=== PATIENT | male | born 1950 | race Caucasian/White ===

== ENCOUNTER → 2016-11-05 | Day surgery (SDC) | payer MEDICARE, BC, OTHER ==
[~2016-11-05] VITALS: Ht 175.3 cm; Wt 81.6 kg
[~2016-11-05] MED LIST: ASPI325T PO; BUPIVACAINE LIPOSOME/PF 1.3% 20 ML VIAL (13.3MG/ML)(EXPAREL) As Ordered ONE; BUPIVACAINE LIPOSOME/PF 1.3% 20 ML VIAL (13.3MG/ML)(EXPAREL) XX ONE; BUPIVACAINE/EPIN 0.25% 30 ML VIAL As Ordered ONE; BUPIVACAINE/EPIN 0.25% 30 ML VIAL XX ONE; FLUT1POW2; GLYCOPYRROLATE INJ 0.2 MG/ML 2 ML VIAL As Ordered ONE; HYDROmorphone HCL 2 MG/ML 1ML VIAL (J1170) As Ordered ONE; KETOROLAC 30 MG/ML VIAL (J1885) IV SCH; KETOROLAC 60 MG/2 ML VIAL (J1885) As Ordered ONE; LAMI1TAB8 PO; LIDOCAINE 2% INJ 100 MG/5 ML SDV (FOR ANES.) As Ordered ONE; LR 1,000 ML IV SCH; MIDAZOLAM INJ 2 MG/2 ML VIAL (J2250) As Ordered ONE; MORPHINE 2 MG/ML 1ML SYRINGE IV PRN; NEOSTIGMINE 1MG/ML 5 ML SYRINGE (J2710) As Ordered ONE; ONDANSETRON 4MG/2ML VIAL (J2405) IV PRN; PERCOCET 5MG/325MG TAB As Ordered ONE; PERCOCET 5MG/325MG TAB PO PRN; PROPOFOL 200 MG/20 ML VIAL As Ordered ONE; ROCURONIUM BROMIDE 50 MG/5 ML VIAL As Ordered ONE; SIMV20TA2 PO; VITA200016 PO; VITA50LO2 PO; VITATAB11 PO; ceFAZolin SOD 1 GM in D5W MINI-BAG PLUS 50 ML IV ONE; dexameTHASONE 4 MG/ML 1ML VIAL (J1100) As Ordered ONE; ePHEDrine SULFATE 25 MG/5 ML(5MG/ML) SYRINGE As Ordered ONE; fentaNYL 100 MCG/2 ML INJECTION (J3010) IV PRN; fentaNYL 250 MCG/5 ML INJECTION (J3010) As Ordered ONE
[2016-11-05 11:40] VITALS: BP 124/78
--- NOTE | 2016-11-05 14:51 | RO ---
DATE OF PROCEDURE: 11/05/2016 PREPROCEDURE DIAGNOSIS: Recurrent right inguinal hernia. POSTPROCEDURE DIAGNOSIS: Recurrent right inguinal hernia. PROCEDURE: Right inguinal hernia repair with mesh. SURGEON: Orlando Martinez MD POURER: Dr. Ashley (provided exposure, retraction, and placement of the mesh). ESTIMATED BLOOD LOSS: Minimal. FLUIDS: Crystalloid. ANESTHESIA: General endotracheal anesthesia. DISPOSITION: The patient was taken to the recovery room awake, alert, hemodynamically stable. DESCRIPTION OF PROCEDURE: The patient was brought to the operating room and was given general anesthesia. After adequate anesthesia and preoperative antibiotics were given, the patient was prepped and draped in the usual sterile fashion. Next, a right inguinal incision was made with skin knife. Electrocautery was used to cut through dermis and underlying subcutaneous tissue down to the external oblique muscle fibers, which were opened along its length and down through the external ring, taking care to keep the external oblique muscles off the underlying soft tissues. A was used to provide retraction in this area and then the cord structures were mobilized off the posterior transverse fascia as well as floor of the canal as well as the pubis. The inguinal ligament was cleared of some attachments as well. These were taken down with electrocautery. The hernia sac was then visualized and was mobilized off surrounding structures and imbricated. I returned to the peritoneal cavity. A PerFix plug was then placed in the canal and sutured superiorly, medially and partially laterally to the external oblique/internal oblique area. The UltraPro mesh was sutured over the top of this in the floor of the canal using #2-0 PDS starting at pubis interruptedly along the inguinal ligament and Secure Strap medially. The tails of mesh were brought together with #2-0 PDS. However, what was noticed at this time was the ilioinguinal nerve, which had been kept free during the dissection, was separate from the cord structures midway down and dove medially along the internal oblique and this was able to be freed up by opening up the external oblique and there was no tension on the nerve itself, but it was lying right on top of the mesh and my concern was that without anything underlying this there be a higher chance for scarring of this nerve. Thus I mobilized it more proximally and transected it proximally. Next, the external oblique was closed over the mesh and the cord contents with #2-0 PDS and #2-0 Vicryl was used to approximate Tori's, #3-0 Vicryl was used to approximate deep dermis and #4-0 Vicryl was used to approximate the skin. Steri-Strips and dry sterile dressing was applied. The patient was awakened, extubated, brought to the recovery room awake, alert, hemodynamically stable. Sponge and needle counts correct times two.
== END | disposition home or self-care (01) ==
LOC: M SDC 06:10
PROVIDERS: ATTEND Surgery
DX: K40.91 Unilateral inguinal hernia, without obstruction or gangrene, recurrent (principal); E78.5 Hyperlipidemia, unspecified; G47.30 Sleep apnea, unspecified; Z79.82 Long term (current) use of aspirin; M54.5 Low back pain
CPT/HCPCS: 49520; C1781; J0690; J1100; J1170; J1885; J2250; J2710; J3010

== ENCOUNTER → 2016-12-17 | Outpatient (REF) | payer MEDICARE, OTHER ==
[~2016-12-17] MED LIST changes: -BUPIVACAINE LIPOSOME/PF 1.3% 20 ML VIAL (13.3MG/ML)(EXPAREL) As Ordered ONE; -BUPIVACAINE LIPOSOME/PF 1.3% 20 ML VIAL (13.3MG/ML)(EXPAREL) XX ONE; -BUPIVACAINE/EPIN 0.25% 30 ML VIAL As Ordered ONE; -BUPIVACAINE/EPIN 0.25% 30 ML VIAL XX ONE; -GLYCOPYRROLATE INJ 0.2 MG/ML 2 ML VIAL As Ordered ONE; -HYDROmorphone HCL 2 MG/ML 1ML VIAL (J1170) As Ordered ONE; -KETOROLAC 30 MG/ML VIAL (J1885) IV SCH; -KETOROLAC 60 MG/2 ML VIAL (J1885) As Ordered ONE; -LIDOCAINE 2% INJ 100 MG/5 ML SDV (FOR ANES.) As Ordered ONE; -LR 1,000 ML IV SCH; -MIDAZOLAM INJ 2 MG/2 ML VIAL (J2250) As Ordered ONE; -MORPHINE 2 MG/ML 1ML SYRINGE IV PRN; -NEOSTIGMINE 1MG/ML 5 ML SYRINGE (J2710) As Ordered ONE; -ONDANSETRON 4MG/2ML VIAL (J2405) IV PRN; -PERCOCET 5MG/325MG TAB As Ordered ONE; -PERCOCET 5MG/325MG TAB PO PRN; -PROPOFOL 200 MG/20 ML VIAL As Ordered ONE; -ROCURONIUM BROMIDE 50 MG/5 ML VIAL As Ordered ONE; -ceFAZolin SOD 1 GM in D5W MINI-BAG PLUS 50 ML IV ONE; -dexameTHASONE 4 MG/ML 1ML VIAL (J1100) As Ordered ONE; -ePHEDrine SULFATE 25 MG/5 ML(5MG/ML) SYRINGE As Ordered ONE; -fentaNYL 100 MCG/2 ML INJECTION (J3010) IV PRN; -fentaNYL 250 MCG/5 ML INJECTION (J3010) As Ordered ONE
[2016-12-17 19:04] LABS: BASO % 0.6 % (0.0-1.0); EOS # 0.2 K/mm3 (0.0-0.50); EOS % 2.5 % (0.0-3.0); LARGE UNSTAINED CELL # 0.1 K/mm3 (0.0-0.4); LARGE UNSTAINED CELL % 1.2 % (0.0-4.0); LYMPH # 1.4 K/mm3 (1.5-4.5); LYMPH % 20.3 % (24.0-44.0); MEAN CORPUSCULAR HEMOGLOBIN 31.9 pg (27.0-33.0); MEAN CORPUSCULAR HGB CONC 33.1 g/dl (32.0-36.5); MEAN CORPUSCULAR VOLUME 96.3 fl (80.0-96.0); MONO # 0.4 K/mm3 (0.0-0.8); MONO % 5.6 % (0.0-5.0); NEUTROPHILS # 4.6 K/mm3 (1.8-7.7); NEUTROPHILS % 69.8 % (36.0-66.0); PLATELET COUNT, AUTOMATED 219 k/mm3 (150-450); WHITE BLOOD COUNT 6.6 K/mm3 (4.0-10.0)
[2016-12-17 19:12] LABS: ALBUMIN 4.1 GM/DL (3.2-5.2); ALBUMIN/GLOBULIN RATIO 1.71 (1.00-1.93); ALKALINE PHOSPHATASE 58 U/L (45-117); ALT/SGPT 28 U/L (12-78); ANION GAP 7 MEQ/L (8-16); AST/SGOT 15 U/L (15-37); BILIRUBIN,TOTAL 0.6 MG/DL (0.2-1.0); BLOOD UREA NITROGEN 21 MG/DL (7-18); CALCIUM LEVEL 9.1 MG/DL (8.8-10.2); CARBON DIOXIDE LEVEL 26 MEQ/L (21-32); CHLORIDE LEVEL 107 MEQ/L (98-107); CHOLESTEROL LEVEL 186 MG/DL (<200); CREATININE FOR GFR 1.17 MG/DL (0.70-1.30); GLOMERULAR FILTRATION RATE > 60.0 (>49); GLUCOSE, FASTING 106 MG/DL (80-110); POTASSIUM SERUM 4.4 MEQ/L (3.5-5.1); SODIUM LEVEL 140 MEQ/L (136-145); TOTAL PROTEIN 6.5 GM/DL (6.4-8.2); TRIGLYCERIDES LEVEL 52 MG/DL (<150)
== END ==
LOC: M LABNEURO 17:46
PROVIDERS: ATTEND Psychiatry & Neurology Neurology
DX: G45.9 Transient cerebral ischemic attack, unspecified (principal)

== ENCOUNTER 2018-07-06 07:38 | Outpatient (RCR) | payer MEDICARE, BC, OTHER | END 2018-07-21 09:35 | disposition home or self-care (01) | LOC: M PT 07:38 | DX: Z47.89 Encounter for other orthopedic aftercare (principal); M54.5 Low back pain | CPT/HCPCS: 97110 ==

== ENCOUNTER 2018-07-21 09:27 | Outpatient (RCR) | payer MEDICARE, BC, OTHER | END 2018-08-14 | LOC: M PT 09:27 | DX: M41.9 Scoliosis, unspecified (principal) | CPT/HCPCS: 97110 ==

== ENCOUNTER → 2018-09-16 | Outpatient (CLI) | payer MEDICARE, BC, OTHER ==
[~2018-09-16] MED LIST changes: +ASPI1TAB PO; +BACT800T5 PO; +OXAY1TAB PO; +TYLE500T78 PO
--- NOTE | 2018-09-16 11:25 | REP ---
Chest two views HISTORY: Preop Comparison: 04/07/2007 The lungs are clear. The heart is normal in size. The pulmonary vasculature is normal in appearance. The bony structure is intact. IMPRESSION: No acute disease. Electronically Signed by Austin Luis MD 09/16/2018 11:17 A
[2018-09-16 13:29] LABS: HEMATOCRIT 45.3 % (42.0-52.0); HEMOGLOBIN 15.2 g/dl (13.5-17.5); MEAN CORPUSCULAR HEMOGLOBIN 32.1 pg (27.0-33.0); MEAN CORPUSCULAR HGB CONC 33.6 g/dl (32.0-36.5); MEAN CORPUSCULAR VOLUME 95.8 fl (80.0-96.0); PLATELET COUNT, AUTOMATED 236 10^3/uL (150-450); RED BLOOD COUNT 4.73 10^6/uL (4.30-6.10); WHITE BLOOD COUNT 8.4 10^3/uL (4.0-10.0)
[2018-09-16 13:48] LABS: INR 1.09; PROTHROMBIN TIME 14.2 SECONDS (12.1-14.4)
[2018-09-16 13:49] LABS: PARTIAL THROMBOPLASTIN TIME 28.2 SECONDS (25.4-37.6)
[2018-09-16 14:01] LABS: BLOOD UREA NITROGEN 21 MG/DL (7-18); CALCIUM LEVEL 9.2 MG/DL (8.8-10.2); CARBON DIOXIDE LEVEL 25 MEQ/L (21-32); CHLORIDE LEVEL 104 MEQ/L (98-107); CREATININE FOR GFR 1.13 MG/DL (0.70-1.30); GLOMERULAR FILTRATION RATE > 60.0 (>49); GLUCOSE, FASTING 104 MG/DL (70-100); POTASSIUM SERUM 4.5 MEQ/L (3.5-5.1); SODIUM LEVEL 139 MEQ/L (136-145)
== END ==
LOC: M SMT 10:32
PROVIDERS: ATTEND Nurse Practitioner Family
DX: Z01.818 Encounter for other preprocedural examination (principal); N47.1 Phimosis

== ENCOUNTER 2018-09-28 11:22 | Day surgery (SDC) | payer MEDICARE, BC, OTHER ==
[~2018-09-28] VITALS: Ht 172.7 cm; Wt 81.6 kg
[~2018-09-28 11:22] MED LIST changes: -BACT800T5 PO; +LR 1,000 ML IV ONE; -OXAY1TAB PO; -TYLE500T78 PO
[2018-09-28] MEDS ORDERED: MIDAZOLAM INJ 2 MG/2 ML VIAL (J2250) As Ordered ONE (13:09)
[2018-09-28] MEDS ORDERED: LIDOCAINE 2% INJ 100 MG/5 ML SDV (FOR ANES.) As Ordered ONE (13:09)
[2018-09-28] MEDS ORDERED: ONDANSETRON 4MG/2ML VIAL (J2405) As Ordered ONE (13:09)
[2018-09-28] MEDS ORDERED: PROPOFOL 200 MG/20 ML VIAL As Ordered ONE (13:09)
[2018-09-28] MEDS ORDERED: METOCLOPRAMIDE INJ 10MG/2ML VIAL (J2765) As Ordered ONE (13:09)
[2018-09-28] MEDS ORDERED: fentaNYL 100 MCG/2 ML INJECTION (J3010) As Ordered ONE ×2 (13:09→15:06)
[2018-09-28] MEDS ORDERED: BACITRACIN OINT 30GM As Ordered ONE (13:37)
[2018-09-28] MEDS ORDERED: PERCOCET 5MG/325MG TAB As Ordered ONE (15:06)
--- NOTE | 2018-09-28 15:06 | ROOPDOC ---
[facility] Report Of Operation Report of Operation DATE OF PROCEDURE: 09/28/18 PREPROCEDURE DIAGNOSES: acquired phimosis. POSTPROCEDURE DIAGNOSES: same. PROCEDURE: circumcision. frenulectomy SURGEON: Aissatou Trevizo MD [facility] ANESTHESIA: GET (Dr. Chase). ESTIMATED BLOOD LOSS: Approximately <10 mL. COMPLICATIONS: none REMARKS: Uncircumcised; acquired phimosis. DESCRIPTION OF PROCEDURE: After examination and informed consent with the patient, the patient was taken to the operating room and a routine time out was completed. The patient then was prepped and draped with Betadine scrub and paint. Then, internal foreskin and external foreskin was marked circumferentially and the sleeve of tissue excised. Using 3-0 chromic coated with bacitracin the patient had interrupted approximation of internal and external foreskin circumferentially until all t issue was approximated. The frenulum was also incised and then approximated with 3-0 chromic coated with bacitracin in a running locking fashion. The patient's skin was cleaned with hydrogen peroxide and Dermabond (r) was placed on the sutured skin for protection and coverage The patient tolerated the procedure well and taken to the recovery room in excellent condition Aissatou Trevizo MD [facility] Aissatou Trevizo MD Sep 28, 2018 15:06
[2018-09-28] MEDS: PERCOCET 5MG/325MG TAB PO PRN ×2 (15:10→15:40)
[2018-09-28] MEDS: fentaNYL 100 MCG/2 ML INJECTION (J3010) IV PRN ×4 (15:10→15:25)
[2018-09-28] MEDS ORDERED: OXAY1TAB PO (15:12)
[2018-09-28] MEDS ORDERED: BACT800T5 PO (15:12)
[2018-09-28] MEDS ORDERED: TYLE500T78 PO (15:12)
[2018-09-28] MEDS ORDERED: LR 1,000 ML IV SCH (15:15)
[2018-09-28] MEDS ORDERED: ONDANSETRON 4MG/2ML VIAL (J2405) IV PRN (15:15)
[2018-09-28 16:28] VITALS: BP 148/90
== END 2018-09-28 16:29 | disposition home or self-care (01) ==
LOC: M SDC 11:22
PROVIDERS: ATTEND Urology Pediatric Urology
DX: N47.1 Phimosis (principal); E78.00 Pure hypercholesterolemia, unspecified; R23.3 Spontaneous ecchymoses; M12.9 Arthropathy, unspecified; M54.5 Low back pain; R56.9 Unspecified convulsions; R06.83 Snoring; G47.30 Sleep apnea, unspecified; Z79.899 Other long term (current) drug therapy; Z86.73 Personal history of transient ischemic attack (TIA), and cerebral infarction without residual deficits

== ENCOUNTER → 2019-01-29 | Outpatient (CLI) | payer MEDICARE, BC, OTHER ==
[~2019-01-29] MED LIST changes: +ASPI-1 PO; -ASPI1TAB PO; -ASPI325T PO; +ASPI81TA26 PO; +BACT800T5 PO; +D 101000 PO; -LR 1,000 ML IV ONE; +OXAY1TAB PO; +TYLE500T78 PO
[2019-01-29 12:18] LABS: HEMATOCRIT 42.8 % (42.0-52.0); HEMOGLOBIN 14.5 g/dl (13.5-17.5); MEAN CORPUSCULAR HGB CONC 33.9 g/dl (32.0-36.5); MEAN CORPUSCULAR VOLUME 97.5 fl (80.0-96.0); PLATELET COUNT, AUTOMATED 213 10^3/uL (150-450); RED BLOOD COUNT 4.39 10^6/uL (4.30-6.10); WHITE BLOOD COUNT 5.6 10^3/uL (4.0-10.0)
[2019-01-29 13:00] LABS: ALBUMIN 3.7 GM/DL (3.2-5.2); ALT/SGPT 25 U/L (12-78); BILIRUBIN,TOTAL 0.7 MG/DL (0.2-1.0); BLOOD UREA NITROGEN 26 MG/DL (7-18); CALCIUM LEVEL 8.9 MG/DL (8.8-10.2); CARBON DIOXIDE LEVEL 25 MEQ/L (21-32); CHLORIDE LEVEL 110 MEQ/L (98-107); CREATININE FOR GFR 1.14 MG/DL (0.70-1.30); GLOMERULAR FILTRATION RATE > 60.0 (>49); GLUCOSE, FASTING 101 MG/DL (70-100); POTASSIUM SERUM 4.3 MEQ/L (3.5-5.1); SODIUM LEVEL 142 MEQ/L (136-145); TOTAL PROTEIN 6.5 GM/DL (6.4-8.2)
[2019-01-29 13:17] LABS: ERYTHROCYTE SEDIMENTATION RATE 3 mm/hr (0-20)
[2019-01-29 13:46] LABS: INR 1.1; PROTHROMBIN TIME 14.3 SECONDS (12.1-14.4)
--- NOTE | 2019-01-29 18:50 | ECGEPIP ---
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
--- NOTE | 2019-01-30 07:06 | REP ---
TWO VIEW CHEST: HISTORY: Knee pain. COMPARISON: Multiple, the latest 09/16/2018. There is a focal lumbar scoliotic curve, status quo. The cardiomediastinal silhouette is unchanged. The heart is not enlarged. Lung mueller are clear and stable. No acute patchy parenchymal opacities or pleural effusions have developed. IMPRESSION: No evidence of acute cardiopulmonary disease or significant change from 09/16/2018. Electronically Signed by Brendan Bryan DO 01/30/2019 08:26 A
== END ==
LOC: M LAB 11:21
PROVIDERS: ATTEND Orthopaedic Surgery
DX: M17.11 Unilateral primary osteoarthritis, right knee (principal)

== ENCOUNTER → 2019-02-05 | Outpatient (CLI) | payer MEDICARE, BC, OTHER | LOC: M PT 07:43 | PROVIDERS: ATTEND Orthopaedic Surgery | DX: Z01.818 Encounter for other preprocedural examination (principal); M17.11 Unilateral primary osteoarthritis, right knee ==

== ENCOUNTER 2019-02-23 05:48 | Inpatient (IN) | payer MEDICARE, BC, OTHER ==
--- NOTE | 2019-02-18 11:07 | HPE ---
DATE OF ADMISSION: 02/23/2019 ATTENDING PHYSICIAN: Dr. White CHIEF COMPLAINT: Right knee pain and stiffness. HISTORY: The patient is a 68-year-old male with progressively worsening right knee pain and stiffness. He has failed to improve with conservative measures. He continues to have symptoms with weightbearing activities and activities of daily living. The patient has consented for an elective right total knee arthroplasty with Dr. White for his continued symptoms. CURRENT MEDICATIONS: - Flonase 50 mcg daily - Zocor 20 mg daily - valacyclovir 1 gram as needed - Viagra 100 mg as needed - B complex vitamin - vitamin D 2000 units daily - Lamictal 100 mg daily - aspirin 81 mg daily ALLERGIES: There are no known drug allergies. PAST MEDICAL HISTORY: Complex partial epileptic seizure, impaired fasting glucose, hyperlipidemia, allergies, thoracolumbar scoliosis. PREVIOUS SURGERIES: Meniscal repair, inguinal hernia surgery. SOCIAL HISTORY: The patient is and lives at home with spouse. He has never smoked and occasionally drinks alcohol. Denies any illicit drug use. REVIEW OF SYSTEMS: The patient denies fevers, chills, nausea, vomiting or diarrhea. Denies chest pain, shortness of breath, lightheadedness, dizziness or headaches. He denies any recent upper respiratory or urinary tract infection symptoms. No complaints of abdominal pain. PHYSICAL EXAMINATION: General: Well-nourished, well-developed male in no apparent distress. He is alert, oriented and cooperative. Mood and affect are appropriate. Vital Signs: Height 66 and 1-1/2 inches, weight 177.4 pounds, temperature 97.4, blood pressure 104/70, heart rate 54, respirations 12. Heart: Regular rate and rhythm. Neck: Supple without lymphadenopathy. Lungs: Clear to auscultation bilaterally. Abdomen: Soft and nontender to palpation. Bowel sounds are present. Musculoskeletal: Right knee does reveal healed prior surgery scars. He does have tenderness along the medial joint line. The patient can extend the knee fully and flex to 95 degrees. Right lower extremity strength is 5/5. No hip irritability elicited with range of motion testing. The patient's calf is soft, nontender to palpation with no palpable cords noted. He is neurovascularly intact distally. LABORATORY DATA: Chest x-ray with focal lumbar scoliotic curve. No evidence of acute cardiopulmonary disease. The right knee x-ray is notable for end-stage varus degenerative changes. EKG sinus rhythm. Comprehensive metabolic profile with fasting glucose elevated at 101, BUN elevated at 26, creatinine 1.14, GFR greater than 60, sodium 142, potassium 4.3, chloride elevated at 110, carbon dioxide 25, anion gap decreased at 7, calcium 8.9, AST 18, ALT 25, alkaline phosphatase 57, total bilirubin 0.7, total protein 6.5, albumin 3.7, albumin-globulin ratio 1.32. Complete blood count with ESR 3, WBC 5.6, RBC 4.39, hemoglobin 14.5, hematocrit 42.8, platelets 213. Prothrombin time 14.3 and INR 1.10. IMPRESSION: Right knee degenerative varus arthritis with x-rays notable for end-stage degenerative changes. PLAN: The patient has consented for an elective right total knee arthroplasty with Dr. White for his continued symptoms. Medical optimization completed by Dr. Kamran Truong and was reviewed during today's appointment. JENNA
[~2019-02-23] VITALS: Ht 170.2 cm; Wt 79.9 kg
[2019-02-23] MEDS ORDERED: LIDOCAINE 1% MDV 20ML VIAL SQ PRN (06:00)
[2019-02-23] MEDS ORDERED: fentaNYL 100 MCG/2 ML INJECTION (J3010) As Ordered ONE ×2 (06:45→07:12)
[2019-02-23] MEDS ORDERED: MIDAZOLAM INJ 2 MG/2 ML VIAL (J2250) As Ordered ONE ×2 (06:45→07:13)
[2019-02-23] MEDS ORDERED: ACETAMINOPHEN 500 MG TAB PO ONE (07:00)
[2019-02-23] MEDS ORDERED: LR 1,000 ML IV ONE (07:00)
[2019-02-23] MEDS ORDERED: ceFAZolin 1GM INJ (J0690 PER 500MG) As Ordered ONE (07:11)
[2019-02-23] MEDS ORDERED: LIDOCAINE 2% INJ 100 MG/5 ML SDV (FOR ANES.) As Ordered ONE (07:12)
[2019-02-23] MEDS ORDERED: PROPOFOL 200 MG/20 ML VIAL As Ordered ONE ×2 (07:12→07:13)
[2019-02-23] MEDS ORDERED: TRANEXAMIC ACID 100 MG/ML 10ML VIAL As Ordered ONE (07:13)
[2019-02-23] MEDS ORDERED: EPINEPHrine INJ 1 MG/ML 1ML AMP As Ordered ONE (07:13)
[2019-02-23] MEDS ORDERED: dexameTHASONE 10 MG/1 ML VIAL PRES.FREE (J1100) ONE (07:27)
[2019-02-23] MEDS ORDERED: ROPIvacaine 0.5% 30 ML INJECTION (J2795 PER 1MG) ONE (07:27)
[2019-02-23] MEDS ORDERED: EPINEPHrine INJ 1 MG/ML 1ML AMP ONE (07:27)
[2019-02-23] MEDS ORDERED: MIDAZOLAM INJ 2 MG/2 ML VIAL (J2250) IV ONE (07:30)
[2019-02-23] MEDS ORDERED: fentaNYL 100 MCG/2 ML INJECTION (J3010) IV ONE (07:30)
[2019-02-23] MEDS ORDERED: ePHEDrine SULFATE 25 MG/5 ML(5MG/ML) SYRINGE As Ordered ONE (08:12)
[2019-02-23] MEDS: BUPIVACAINE LIPOSOME/PF 1.3% 20ML VIAL (13.3MG/ML)(EXPAREL)(C9290 PER1MG) As Ordered ONE ×2 (08:55→09:55)
[2019-02-23] MEDS: BUPIVACAINE HCL 0.25% 30 ML VIAL As Ordered ONE ×2 (08:55→09:55)
--- NOTE | 2019-02-23 09:41 | RO ---
DATE OF PROCEDURE: 02/23/2019 PREOPERATIVE DIAGNOSIS: Right knee degenerative arthritis. POSTOPERATIVE DIAGNOSIS: Right knee degenerative arthritis. PROCEDURE: Right total knee arthroplasty using a size 5 cruciate retaining femoral component, size 6 tibial tray, a 6 mm rotating platform polyethylene insert, and a 38 mm polyethylene button. All components were cemented. The prosthesis was an Attune made by [employer]. SURGEON: Julio César White MD SPOOL TENDER: Mr. Raymond King PA-C ANESTHESIA: Spinal with right femoral nerve block. COMPLICATIONS: None. ESTIMATED BLOOD LOSS: Less than 20 mL. SPECIMENS: Joint surface. DESCRIPTION OF PROCEDURE: Antibiotics were given intravenously preoperatively, and a successful right femoral nerve block and then a spinal anesthetic was induced. The tourniquet was placed on the right upper thigh and not inflated. The right lower extremity was carefully prepped and draped in the usual sterile fashion and elevated. Then, after appropriate time-out, the tourniquet was inflated for 54 minutes. A longitudinal incision was made for a medial parapatellar approach to the knee. Bovie cautery used to coagulate crossing vessels. Medial parapatellar arthrotomy performed. Subperiosteal dissection around the proximal medial and lateral tibia plateau was performed. The patella was then everted and the knee flexed, the anterior cruciate ligament (ACL) debrided, drill placed down the center of the femoral canal, and then the intramedullary elle and the distal femoral cutting jig was then applied and set at a 5-degree valgus cut for a right knee at 9-mm resection level. It was pinned into position. Distal femoral cut performed. AP sizing jig measured for a size 5. 3 degrees of external rotation dialed in. The 4-in-1 block applied and the anterior and posterior chamfer cuts performed. The notch jig was the placed and the notchplasty performed. Then exposed the proximal tibia, used the extramedullary elle to estimate being parallel to the mechanical axis of the tibia, referencing off the medial tibial condyle at 4 mm resection level. The block was set, pinned in position. Extramedullary elle used for a secondary check, and we appeared to be parallel to the mechanical axis. The proximal tibial osteotomy thus performed. The, the lamina canvas cutter hand placed medially, and we performed a completion of lateral meniscectomy and debridement of the posterior and lateral osteophytes, and then placed the lamina canvas cutter hand laterally, and performed a completion of medial meniscectomy with debridement of the posterior and lateral osteophytes. A spacer block at 6 mm seemed to have good symmetry, both in flexion and in extension to varus and valgus stress testing. We then exposed the proximal tibia, sized for a #6 tibial tray, which was pinned into position, followed by the reamer and broach. The trial placed. The trial femoral component placed. It fit nicely. The knee was brought into extension and the patella everted, patellar osteotomy performed, and then sized for a 38 button. The lug holes drilled. The trial placed. Patellofemoral tracking was anatomic. We drilled the lug holes for the femur, and then we removed all the trial components, and then placed Exparel in the subperiosteal tissues around the distal femur at the proximal tibia; and then my assistant boiler operator, Mr. Raymond King, mixed the cement on the back table as I prepared the bony surfaces for cementing with a copious amount of pulsatile lavage irrigant solution. Mr. King was also critical to the success of this difficult operation by helping with appropriate soft tissue retraction, helped to manipulate the knee as needed, helped to prepare the patient, helped to close the wound, helped to mix the cement, amongst many other tasks to allow me to perform the operation smoothly and efficiently. When all the bony surfaces were thoroughly dried, we cemented the tibial tray, removed excess cement, placed the polyethylene, then cemented the femoral component, removed excess cement, brought the knee into extension, and then everted the patella, and cemented the patellar button, removed excess cement, and held it with a clamp with the knee in extension until the cement hardened. As we were awaiting this, we copiously pulsatile lavage irrigated out the knee joint and then placed tranexamic acid in the knee, then began closing the apex of the arthrotomy with two #1 polydioxanone suture (PDS) sutures in the knee. The parapatellar area was closed with a #1 PDS suture and a double-arm Stratafix used to close the capsule. The tourniquet was then released. We copiously irrigated and closed the deep subdermal tissues with interrupted #2-0 PDS sutures. The skin was closed with juliet, covered by an Optifoam dry sterile bulky dressing. He was then transferred to the recovery room in stable condition. There were no intraoperative complications.
[2019-02-23] MEDS ORDERED: LR 1,000 ML IV SCH (09:45)
[2019-02-23] MEDS ORDERED: ONDANSETRON 4MG/2ML VIAL (J2405) IV PRN (09:45)
[2019-02-23] MEDS ORDERED: ACETAMINOPHEN TAB 650MG DOSE (2X325MG) PO PRN (09:45)
[2019-02-23] MEDS ORDERED: HYDROMORPHONE HCL 0.5 MG/ 0.5 ML SYRINGE (J1170 PER 1) IV PRN (09:45)
[2019-02-23] MEDS ORDERED: FLEET ENEMA PR PRN (09:45)
[2019-02-23] MEDS ORDERED: NORCO, ANEXSIA 5/325MG TABLET (HYDROcodone/ACETAMINOPHEN) PO PRN (09:45)
[2019-02-23] MEDS ORDERED: fentaNYL 100 MCG/2 ML INJECTION (J3010) IV PRN (09:45)
--- NOTE | 2019-02-23 09:55 | REP ---
RIGHT KNEE, TWO VIEWS: Two views of the right knee performed. Total knee prosthesis is noted. Osseous structures are intact and well aligned. Postsurgical air and fluid is seen in the suprapatellar bursa. Multiple skin juliet are seen anteriorly. Electronically Signed by Wali Pearl MD 02/23/2019 12:47 P
[2019-02-23 10:23] VITALS: BP 113/71
[2019-02-23] MEDS: LR 1,000 ML IV SCH ×2 (10:30→19:59)
[2019-02-23 11:04] VITALS: BP 114/73
[2019-02-23 12:05] VITALS: BP 113/74
[2019-02-23 15:05] VITALS: BP 115/73
[2019-02-23] MEDS: HYDROMORPHONE HCL 0.5 MG/ 0.5 ML SYRINGE (J1170 PER 1) IV PRN ×2 (16:38→20:44)
--- NOTE | 2019-02-23 17:35 | CR.PDOC ---
General Date of Consultation: Feb 23, 2019 Consultation REASON FOR CONSULTATION/CHIEF COMPLAINT: Medical management. HISTORY OF PRESENT ILLNESS: . 68-year-old male with past medical history of seizures, dyslipidemia, allergies, and arthritis was admitted under the hospitalist service for a right knee replacement. The hospitalist service has been consulted to manage the patient's chronic medical comorbidities. At this time, the patient denies any acute complaints of fevers, chills, chest pain, shortness become palpitations, abdominal pain, or any nausea/vomiting/diarrhea. ALLERGIES: Please see below. HOME MEDICATIONS: Please see below. PAST MEDICAL HISTORY: As noted in HPI PAST SURGICAL HISTORY: Meniscal repair, inguinal hernia surgery FAMILY HISTORY: Noncontributory SOCIAL HISTORY: Denies tobacco or illicit drug use. Occasionally drinks alcohol. REVIEW OF SYSTEMS: 10 point review of systems negative unless otherwise specified in HPI. PHYSICAL EXAMINATION: VITAL SIGNS: Please see below. GENERAL APPEARANCE: . Awake, alert, in no acute distress HEENT: . Normocephalic, atraumatic RESPIRATORY: . Clear to auscultation bilaterally CARDIOVASCULAR: . Normal rate, normal S1, S2 ABDOMEN: . Soft, nontender, nondistended EXTREMITIES: . Right knee noted to be wrapped in surgical dressing. Range of motion limited secondary to recent surgical intervention. The extremity is neurovascularly intact distally. LABORATORY DATA: Please see below. ASSESSMENT/PLAN: s/p Right Knee Replacement Post-operative and Pain mgmt, DVT Prophylaxis as per Ortho Hx of Seizure D/O Cont Lamictal Dyslipidemia Cont Statin Vit D Deficiency Cont supplementation as ordered DVT Prophylaxis on Xarelto as per Ortho Vital Signs/I&O Vital Signs Date Time Temp Pulse Resp B/P (MAP) Pulse Ox O2 Delivery O2 Flow Rate FiO2 02/23/19 16:38 15 02/23/19 12:05 49 113/74 (87) 98 02/23/19 12:03 98.0 02/23/19 07:20 2 Allergies Coded Allergies: No Known Allergies (Unverified , 02/23/19) Home Medications Scheduled Aspirin (Aspirin EC) 81 Mg Tab, 81 MG PO DAILY, #30 (Reported) Cholecalciferol (Vitamin D3) (Vitamin D3) 1,000 Unit Capsule, 1 CAP PO DAILY for 30 Days, #30 (Reported) Fluticasone Propionat,Microniz (Fluticasone Propionate Micro) 1 Pow Pow, 2 PUFF NA DAILY, (Reported) Lamotrigine (Lamictal) 150 Mg Tab, 150 MG PO BID, (Reported) Simvastatin (Simvastatin) 20 Mg Tab, 20 MG PO QHS, (Reported) BARBARA SANDOVAL MD Feb 23, 2019 17:35
[2019-02-23] MEDS ORDERED: PILL CUTTER 1 EACH XX PRN (17:45)
[2019-02-23] MEDS: lamoTRIgine 100MG TAB PO SCH (19:59)
[2019-02-23 20:00] VITALS: BP 112/73
[2019-02-23] MEDS ORDERED: SIMVASTATIN 20 MG TAB PO SCH (21:00)
[2019-02-24 02:23] VITALS: O2SAT 98
[2019-02-24 05:16] VITALS: BP 110/69
[2019-02-24] MEDS ORDERED: PERCOCET 5MG/325MG TAB PO PRN (06:00)
[2019-02-24] MEDS ORDERED: ONDANSETRON 4 MG TAB (S0181) PO PRN (06:00)
[2019-02-24 06:01] LABS: HEMATOCRIT 39.3 % (42.0-52.0); HEMOGLOBIN 13.1 g/dl (13.5-17.5); MEAN CORPUSCULAR HEMOGLOBIN 32.6 pg (27.0-33.0); MEAN CORPUSCULAR HGB CONC 33.3 g/dl (32.0-36.5); MEAN CORPUSCULAR VOLUME 97.8 fl (80.0-96.0); PLATELET COUNT, AUTOMATED 174 10^3/uL (150-450); RED BLOOD COUNT 4.02 10^6/uL (4.30-6.10); WHITE BLOOD COUNT 11.9 10^3/uL (4.0-10.0)
[2019-02-24 06:21] LABS: BLOOD UREA NITROGEN 18 MG/DL (7-18); CALCIUM LEVEL 8.1 MG/DL (8.8-10.2); CARBON DIOXIDE LEVEL 27 MEQ/L (21-32); CHLORIDE LEVEL 105 MEQ/L (98-107); CREATININE FOR GFR 1.06 MG/DL (0.70-1.30); GLOMERULAR FILTRATION RATE > 60.0 (>49); GLUCOSE, FASTING 129 MG/DL (70-100); POTASSIUM SERUM 3.7 MEQ/L (3.5-5.1); SODIUM LEVEL 138 MEQ/L (136-145)
[2019-02-24] MEDS ORDERED: XARE10TA PO (06:58)
[2019-02-24] MEDS ORDERED: PERC5TAB12 PO (06:58)
[2019-02-24] MEDS: PERCOCET 5MG/325MG TAB PO PRN ×2 (08:03→12:19)
[2019-02-24] MEDS ORDERED: VITAMIN D 1,000 INTERNATIONAL UNITS TABLET PO SCH (09:00)
[2019-02-24] MEDS ORDERED: FLUTICASONE HFA 220 MCG 12 GM INHALER (FLOVENT) INH SCH (09:00)
[2019-02-24] MEDS ORDERED: MOM 30ML SUSPENSION UDC PO SCH (09:00)
[2019-02-24] MEDS ORDERED: MIRALAX *UNIT DOSE* 17GM PACKET PO SCH (09:00)
[2019-02-24] MEDS: lamoTRIgine 100MG TAB PO SCH (09:58)
[2019-02-24] MEDS ORDERED: RIVAROXABAN 10 MG TAB (XARELTO) PO SCH (18:00)
--- NOTE | 2019-02-25 15:01 | DSES ---
DATE OF ADMISSION: 02/23/2019 DATE OF DISCHARGE: 02/24/2019 DISCHARGE DIAGNOSIS: Right knee arthritis, status post right total knee arthroplasty. HISTORY: A 68-year-old male with progressively worsening right knee pain and stiffness. He had failed to improve with conservative treatment. He elected for surgery for his continued symptoms. PROCEDURE PERFORMED: A right total knee arthroplasty. HOSPITAL COURSE: The patient was admitted on the day of surgery and underwent right total knee arthroplasty that was without complications. The patient's hospital course was without complications as well. On the day of discharge, the patient was doing well. He was weightbearing as tolerated with his walker. Will resume preoperative medications and diet. Will use oral medications for pain control. The patient will also use Xarelto for 2 weeks and thromboembolism deterrent (MAIRA) stockings for 30 days postoperatively for deep venous thrombosis (DVT) prophylaxis, and he will follow in the office in 2 weeks for wound check and staple removal. Please see the medical record for further details.
== END 2019-02-24 13:00 | disposition home or self-care (01) | DRG 470 ==
LOC: M OR 05:48 → M MS5PR 10:15
PROVIDERS: ADMIT Orthopaedic Surgery; ATTEND Orthopaedic Surgery
PROC: 0SRC0J9 Replacement of Right Knee Joint with Synthetic Substitute, Cemented, Open Approach (ICD-10-PCS; principal; 2019-02-23 07:30)
DX: M17.11 Unilateral primary osteoarthritis, right knee (principal); G40.209 Localization-related (focal) (partial) symptomatic epilepsy and epileptic syndromes with complex partial seizures, not intractable, without status epilepticus; R73.01 Impaired fasting glucose; E78.5 Hyperlipidemia, unspecified; E55.9 Vitamin D deficiency, unspecified; J30.9 Allergic rhinitis, unspecified; M41.35 Thoracogenic scoliosis, thoracolumbar region; Z79.82 Long term (current) use of aspirin; Z79.899 Other long term (current) drug therapy

== ENCOUNTER → 2019-03-09 | Outpatient (CLI) | payer MEDICARE, BC, OTHER ==
[~2019-03-09] MED LIST changes: +PERC5TAB12 PO; +XARE10TA PO
--- NOTE | 2019-03-09 16:06 | REP ---
Clinical: Right lower extremity pain and swelling . Technique: Pearl scale and color Doppler evaluation using linear high frequency transducer. Findings: Ultrasound examination of the right lower extremity deep venous structures from the common femoral vein to the popliteal vein demonstrates normal compressibility flow and wave patterns in response to respiration and augmentation. There is no evidence for deep venous thrombosis. Subcutaneous edema. The the tip of the Impression: No evidence for deep venous thrombosis. Electronically Signed by Fran Hou MD 03/09/2019 03:57 P
== END ==
LOC: M RAD 15:18
PROVIDERS: ATTEND Orthopaedic Surgery
DX: M79.661 Pain in right lower leg (principal)

== ENCOUNTER 2019-03-11 08:22 | Outpatient (RCR) | payer MEDICARE, BC, OTHER | END 2019-03-14 | LOC: M PT 08:22 | PROVIDERS: ATTEND Orthopaedic Surgery | DX: Z96.651 Presence of right artificial knee joint (principal) ==

== ENCOUNTER 2019-04-13 09:54 | Outpatient (RCR) | payer MEDICARE, BC, OTHER | END 2019-04-14 | LOC: M PT 09:54 | PROVIDERS: ATTEND Orthopaedic Surgery | DX: Z47.1 Aftercare following joint replacement surgery (principal); Z96.651 Presence of right artificial knee joint; M75.41 Impingement syndrome of right shoulder ==

== ENCOUNTER 2019-05-06 08:29 | Outpatient (RCR) | payer MEDICARE, BC, OTHER | END 2019-05-15 | LOC: M PT 08:29 | PROVIDERS: ATTEND Orthopaedic Surgery | DX: Z47.1 Aftercare following joint replacement surgery (principal); Z96.651 Presence of right artificial knee joint; M75.41 Impingement syndrome of right shoulder ==

== ENCOUNTER 2020-03-08 09:45 | Inpatient (IN) | payer MEDICARE, BC, OTHER ==
[~2020-03-08] VITALS: Ht 172.7 cm; Wt 79.4 kg
[~2020-03-08 09:45] MED LIST changes: -SIMV20TA2 PO; +SIMV20TA22 PO
[2020-04-05] MEDS ORDERED: D31000TA2 PO (10:32)
[2020-04-05] MEDS ORDERED: ASPI81TA86 PO (10:32)
[2020-04-05] MEDS ORDERED: RA B1TAB8 PO (10:32)
[2020-04-12] MEDS ORDERED: MIDAZOLAM INJ 2MG/2ML VIAL (J2250 PER 1MG) As Ordered ONE ×2 (06:46→10:26)
[2020-04-12] MEDS ORDERED: fentaNYL 100 MCG/2 ML INJECTION (J3010) As Ordered ONE ×2 (06:46→11:42)
[2020-04-12] MEDS ORDERED: ACETAMINOPHEN 500 MG TAB As Ordered ONE (07:42)
[2020-04-12] MEDS ORDERED: ceFAZolin 2 GM/D5W 50 ML IV BAG (J0690 PER 500MG) As Ordered ONE ×2 (07:42→18:37)
[2020-04-12] MEDS ORDERED: LIDOCAINE 1% MDV 20ML VIAL As Ordered ONE (09:04)
[2020-04-12] MEDS ORDERED: TRANEXAMIC ACID 100 MG/ML 10ML VIAL As Ordered ONE (09:37)
[2020-04-12] MEDS ORDERED: EPINEPHrine INJ 1 MG/ML 1ML AMP As Ordered ONE (09:38)
[2020-04-12] MEDS ORDERED: BUPIVACAINE LIPOSOME/PF 1.3% 20ML VIAL (13.3MG/ML)(EXPAREL)(C9290 PER1MG) As Ordered ONE (09:38)
[2020-04-12] MEDS ORDERED: BUPIVACAINE HCL 0.25% 10ML VIAL As Ordered ONE (09:38)
[2020-04-12] MEDS ORDERED: ceFAZolin 1GM VIAL (J0690 PER 500MG) As Ordered ONE (09:38)
[2020-04-12] MEDS ORDERED: propofoL 500 MG/50 ML VIAL As Ordered ONE (09:40)
[2020-04-12] MEDS ORDERED: LIDOCAINE 2% 100MG/5ML SDV (FOR ANES.) As Ordered ONE (09:43)
[2020-04-12] MEDS ORDERED: PHENYLephrine HCL 500 MCG/5 ML (100MCG/ML) SYRINGE (J2370) As Ordered ONE (11:23)
[2020-04-12] MEDS ORDERED: ePHEDrine SULFATE 25 MG/5 ML(5MG/ML) SYRINGE As Ordered ONE (11:23)
[2020-04-12] MEDS ORDERED: dexameTHASONE 10MG/1ML VIAL PRES.FREE (J1100 PER 1MG) ONE (13:32)
[2020-04-12] MEDS ORDERED: EPINEPHrine INJ 1 MG/ML 1ML AMP ONE (13:32)
[2020-04-12] MEDS ORDERED: ROPIvacaine 0.5% 30ML INJECTION (J2795 PER 1MG) ONE (13:32)
[2020-04-12] MEDS ORDERED: ceFAZolin 2 GM/D5W 50 ML IV BAG (J0690 PER 500MG) ONE (18:37)
[2020-04-12] MEDS ORDERED: PERCOCET 5MG/325MG TAB As Ordered ONE (22:09)
[2020-04-12] MEDS ORDERED: lamoTRIgine 100MG TAB As Ordered ONE (22:09)
[2020-04-12] MEDS ORDERED: SIMVASTATIN 20 MG TAB As Ordered ONE (22:09)
[2020-04-12] MEDS ORDERED: SIMETHICONE 80 MG CHEW TAB As Ordered ONE (23:11)
[2020-04-13] MEDS ORDERED: ceFAZolin 2 GM/D5W 50 ML IV BAG (J0690 PER 500MG) As Ordered ONE (02:41)
[2020-04-13] MEDS ORDERED: ONDANSETRON 4MG/2ML VIAL As Ordered ONE (05:59)
[2020-04-13] MEDS ORDERED: PERCOCET 5MG/325MG TAB ONE ×2 (06:00→15:37)
[2020-04-13] MEDS ORDERED: ONDANSETRON 4MG/2ML VIAL ONE (06:00)
[2020-04-13] MEDS ORDERED: PERCOCET 5MG/325MG TAB As Ordered ONE ×3 (06:00→15:38)
[2020-04-13] MEDS ORDERED: ASPIRIN 81 MG ENTERIC TAB As Ordered ONE (08:07)
[2020-04-13] MEDS ORDERED: ASPIRIN 81 MG ENTERIC TAB ONE (08:07)
[2020-04-13] MEDS ORDERED: lamoTRIgine 25 MG TAB ONE ×2 (08:07→21:16)
[2020-04-13] MEDS ORDERED: lamoTRIgine 25 MG TAB As Ordered ONE ×2 (08:09→21:16)
[2020-04-13] MEDS ORDERED: OXYCODONE/APAP 5MG/325MG(BULK FOR ED) 1 TABLET ONE (10:30)
[2020-04-13] MEDS ORDERED: MOM 30ML SUSPENSION UDC ONE (13:02)
[2020-04-13] MEDS ORDERED: BISACODYL 10 MG SUPP ONE (13:02)
[2020-04-13] MEDS ORDERED: MIRALAX *UNIT DOSE* 17GM PACKET ONE (13:02)
[2020-04-13] MEDS ORDERED: MOM 30ML SUSPENSION UDC As Ordered ONE (13:02)
[2020-04-13] MEDS ORDERED: MIRALAX *UNIT DOSE* 17GM PACKET As Ordered ONE (13:02)
[2020-04-13] MEDS ORDERED: BISACODYL 10 MG SUPP As Ordered ONE (13:03)
[2020-04-13] MEDS ORDERED: ONDANSETRON 4 MG ORAL DISINTEGRATING TAB As Ordered ONE (15:37)
[2020-04-13] MEDS ORDERED: ONDANSETRON 4 MG ORAL DISINTEGRATING TAB ONE (15:37)
[2020-04-13] MEDS ORDERED: SIMETHICONE 80 MG CHEW TAB ONE (15:37)
[2020-04-13] MEDS ORDERED: SIMETHICONE 80 MG CHEW TAB As Ordered ONE (15:37)
[2020-04-13] MEDS ORDERED: RIVAROXABAN 10 MG TAB (XARELTO) ONE (18:30)
[2020-04-13] MEDS ORDERED: RIVAROXABAN 10 MG TAB (XARELTO) As Ordered ONE (18:30)
[2020-04-13] MEDS ORDERED: lamoTRIgine 100MG TAB As Ordered ONE (21:16)
[2020-04-13] MEDS ORDERED: SIMVASTATIN 20 MG TAB ONE (21:16)
[2020-04-13] MEDS ORDERED: ASPIRIN 81 MG CHEW TABLET As Ordered ONE (21:16)
[2020-04-13] MEDS ORDERED: SIMVASTATIN 20 MG TAB As Ordered ONE (21:16)
[2020-04-13] MEDS ORDERED: lamoTRIgine 100MG TAB ONE (21:16)
[2020-04-13] MEDS ORDERED: ASPIRIN 81 MG CHEW TABLET ONE (21:16)
[2020-04-14] MEDS ORDERED: MIRALAX *UNIT DOSE* 17GM PACKET As Ordered ONE (09:07)
[2020-04-14] MEDS ORDERED: lamoTRIgine 25 MG TAB As Ordered ONE (09:07)
[2020-04-14] MEDS ORDERED: ONDANSETRON 4 MG TAB As Ordered ONE ×2 (09:07→15:58)
[2020-04-14] MEDS ORDERED: MOM 30ML SUSPENSION UDC As Ordered ONE (09:07)
[2020-04-14] MEDS ORDERED: ASPIRIN 81 MG ENTERIC TAB As Ordered ONE (09:08)
[2020-04-14] MEDS ORDERED: lamoTRIgine 100MG TAB As Ordered ONE (09:08)
[2020-04-14] MEDS ORDERED: BISACODYL 10 MG SUPP As Ordered ONE (09:08)
[2020-04-14] MEDS ORDERED: PERCOCET 5MG/325MG TAB As Ordered ONE ×2 (09:09→12:24)
[2020-04-14] MEDS ORDERED: MAGNESIUM CITRATE 300 ML BTL As Ordered ONE (09:09)
[2020-06-03 15:13] LABS: HEMATOCRIT 42.9 % (42.0-52.0); HEMOGLOBIN 14.3 g/dl (13.5-17.5); MEAN CORPUSCULAR HEMOGLOBIN 32.1 pg (27.0-33.0); MEAN CORPUSCULAR HGB CONC 33.3 g/dl (32.0-36.5); MEAN CORPUSCULAR VOLUME 96.2 fl (80.0-96.0); PLATELET COUNT, AUTOMATED 199 10^3/uL (150-450); RED BLOOD COUNT 4.46 10^6/uL (4.30-6.10); WHITE BLOOD COUNT 11.3 10^3/uL (4.0-10.0)
--- NOTE | 2020-06-07 16:00 | RO ---
Date of Operation: 04/12/2020 PREOPERATIVE DIAGNOSIS: Left knee degenerative arthritis. POSTOPERATIVE DIAGNOSIS: Left knee degenerative arthritis. PROCEDURE: Left total knee arthroplasty using a size 5 cruciate-retaining femoral component cemented with a size 6 tibial tray cemented with a 10-mm rotating platform polyethylene insert and a 35 mm button. Prosthesis was made by [employer]. It was an [employer] knee. SURGEON: Julio César White M.D. PHYSICIAN ASSISTANT PRIMARY CARE: Niyah Henderson ANESTHESIA: Left femoral nerve block with spinal anesthetic. COMPLICATIONS: None. ESTIMATED BLOOD LOSS: 20 mL. SPECIMEN: Joint surface. DESCRIPTION OF PROCEDURE: Antibiotics were given intravenously preoperatively, then a successful left femoral nerve block, and then spinal anesthetic was induced. Tourniquet was placed to the left upper thigh and not inflated. The left lower extremity was carefully prepped and draped in the usual sterile fashion and then elevated, and after appropriate timeout the tourniquet was inflated. We did a longitudinal incision for a medial parapatellar approach to the knee. Bovee cautery was used to coagulate the crossing vessels. Subperiosteal dissection along the proximal, medial, and lateral tibial plateau was performed. Patella was everted, the knee flexed, and ACL debrided. Drill placed down the center of the femoral canal followed by the intramedullary elle. Distal femoral cutting jig set at 5 degrees valgus cut for a left knee at 9 mm resection level. The distal femoral cut was performed. Posterior sizing jig was then applied and measured for a size 5 femoral component, which matched the opposite side, 3 degrees of external rotation dialed in and pins placed. The 4-in-1 block applied and the anterior and posterior chamfer cuts performed. We then placed the sulcus osteotomy jig and a sulcus osteotomy was performed. We then exposed the proximal tibia and used the extramedullary alignment jig to estimate being parallel to the mechanical access, referring off the medial tibial condyle at 4 mm resection level. It was very sclerotic medially. Secondary check with extramedullary elle confirmed that it appeared to be parallel to the mechanical access. Proximal tibial osteotomy was then performed and the excess bone was debrided. Spacer blocks were then trialed and he was clearly between an 8 and a 10 mm spacer; however, with the 8 mid-flexion seemed to be a little bit too loose and sloppy and I wanted to give him the best stability; given that he is still quite an athlete and plays tennis, so we reserved the final trial until later. We then exposed the proximal tibia size for #6 tibial tray, which was reamed and broached, and then the trial 8 was placed followed by the trial femoral component. Brought the knee to extension, everted the patella, and performed a patella osteotomy sized for a 35 button. Lug hole was drilled, trial placed, and patellofemoral tracking was anatomic. I trialed the 10 mm spacer then at this point and there was some asymmetry and tightness between the medial and lateral compartments; thus, I did do an additional posteromedial release and maximized our medial release. However, the 10 mm spacer did give him the best stability to varus and valgus stress testing both in flexion and extension, as well as in mid-flexion. I also felt this would be the appropriate thickness of polyethylene to utilize. The lug holes for the femur were drilled and all the trials were removed. We copiously irrigated out the knee joint and instilled Exparel into the subperiosteal dissections of the distal femur and proximal tibia as my graphic design assistant Ms. Heather Crawford mixed the cement on the back table. She was also critical to the success of this difficult procedure by helping to manipulate the knee as needed, help to apply appropriate soft tissue retraction, help to mix the cement, help to prepare the patient, help to close the wound, amongst many other tasks to allow me to perform the operation smoothly, efficiently, and safely. Once all the bony surfaces thoroughly irrigated and dried, we submitted the tibial tray, removed the excess cement, and placed the polyethylene. We then submitted the femoral component, removed excess cement, brought the knee to extension and cemented the patella button holding it with a clamp with the knee in full extension until the cement hardened. As we were awaiting that, we copiously irrigated out the wound joint once again. We then instilled the tranexamic acid and then closed the apex of the arthrotomy with two #1 PDS sutures, medial parapatellar area was closed with #1 PDS suture, then we released the tourniquet, and closed the subdermal tissues with interrupted 2-0 PDS sutures, and skin was closed with juliet covered by Optifoam and a dry sterile bulky dressing. He was then transferred to the recovery room in stable condition. There were no intraoperative complications. JENNA
[2020-07-05 09:52] LABS: ALBUMIN 3.4 GM/DL (3.2-5.2); ALT/SGPT 20 U/L (12-78); BILIRUBIN,TOTAL 0.6 MG/DL (0.2-1.0); BLOOD UREA NITROGEN 14 MG/DL (7-18); CALCIUM LEVEL 8.6 MG/DL (8.8-10.2); CARBON DIOXIDE LEVEL 29 MEQ/L (21-32); CHLORIDE LEVEL 106 MEQ/L (98-107); CREATININE FOR GFR 1.16 MG/DL (0.70-1.30); GLOMERULAR FILTRATION RATE > 60.0 (>49); GLUCOSE, FASTING 117 MG/DL (70-100); SODIUM LEVEL 138 MEQ/L (136-145)
[2020-07-08 10:03] LABS: ALBUMIN 3.2 GM/DL (3.2-5.2); ALT/SGPT 18 U/L (12-78); BILIRUBIN,TOTAL 0.8 MG/DL (0.2-1.0); BLOOD UREA NITROGEN 11 MG/DL (7-18); CALCIUM LEVEL 8.6 MG/DL (8.8-10.2); CARBON DIOXIDE LEVEL 28 MEQ/L (21-32); CHLORIDE LEVEL 106 MEQ/L (98-107); GLOMERULAR FILTRATION RATE > 60.0 (>49); GLUCOSE, FASTING 137 MG/DL (70-100); POTASSIUM SERUM 3.9 MEQ/L (3.5-5.1); SODIUM LEVEL 140 MEQ/L (136-145); TOTAL PROTEIN 6.2 GM/DL (6.4-8.2)
[2020-07-12 12:21] LABS: HEMATOCRIT 42.6 % (42.0-52.0); HEMOGLOBIN 14.2 g/dl (13.5-17.5); MEAN CORPUSCULAR HEMOGLOBIN 31.9 pg (27.0-33.0); MEAN CORPUSCULAR HGB CONC 33.3 g/dl (32.0-36.5); MEAN CORPUSCULAR VOLUME 95.7 fl (80.0-96.0); PLATELET COUNT, AUTOMATED 200 10^3/uL (150-450); RED BLOOD COUNT 4.45 10^6/uL (4.30-6.10); WHITE BLOOD COUNT 9.6 10^3/uL (4.0-10.0)
== END 2020-04-14 09:15 | disposition home or self-care (01) | DRG 470 ==
LOC: M MSPAV 04-12 07:30
PROVIDERS: ADMIT Orthopaedic Surgery; ATTEND Orthopaedic Surgery
PROC: 0SRC0J9 Replacement of Right Knee Joint with Synthetic Substitute, Cemented, Open Approach (ICD-10-PCS; principal; 2020-04-12)
DX: M17.12 Unilateral primary osteoarthritis, left knee (principal); G40.209 Localization-related (focal) (partial) symptomatic epilepsy and epileptic syndromes with complex partial seizures, not intractable, without status epilepticus; E78.5 Hyperlipidemia, unspecified; M41.9 Scoliosis, unspecified; R73.01 Impaired fasting glucose; Z96.651 Presence of right artificial knee joint; Z79.899 Other long term (current) drug therapy

== ENCOUNTER → 2020-03-24 | Outpatient (CLI) | payer MEDICARE, BC, OTHER ==
[~2020-03-24] MED LIST changes: +ASPI81TA86 PO; +D31000TA2 PO; +RA B1TAB8 PO
[2020-03-24 12:28] LABS: HEMATOCRIT 43.1 % (42.0-52.0); HEMOGLOBIN 14.4 g/dl (13.5-17.5); MEAN CORPUSCULAR HEMOGLOBIN 31.4 pg (27.0-33.0); MEAN CORPUSCULAR HGB CONC 33.4 g/dl (32.0-36.5); MEAN CORPUSCULAR VOLUME 93.9 fl (80.0-96.0); PLATELET COUNT, AUTOMATED 205 10^3/uL (150-450); RED BLOOD COUNT 4.59 10^6/uL (4.30-6.10); WHITE BLOOD COUNT 5.5 10^3/uL (4.0-10.0)
[2020-03-24 12:38] LABS: INR 1.14; PROTHROMBIN TIME 14.3 SECONDS (11.8-14.0)
--- NOTE | 2020-03-24 12:44 | ECGEPIP ---
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
[2020-03-24 12:57] LABS: ALBUMIN 3.7 GM/DL (3.2-5.2); ALT/SGPT 24 U/L (12-78); BILIRUBIN,TOTAL 0.6 MG/DL (0.2-1.0); BLOOD UREA NITROGEN 18 MG/DL (7-18); CALCIUM LEVEL 9.1 MG/DL (8.8-10.2); CARBON DIOXIDE LEVEL 26 MEQ/L (21-32); CHLORIDE LEVEL 109 MEQ/L (98-107); CREATININE FOR GFR 1.12 MG/DL (0.70-1.30); ERYTHROCYTE SEDIMENTATION RATE 3 mm/hr (0-20); GLOMERULAR FILTRATION RATE > 60.0 (>49); GLUCOSE, FASTING 98 MG/DL (70-100); POTASSIUM SERUM 4.4 MEQ/L (3.5-5.1); SODIUM LEVEL 141 MEQ/L (136-145); TOTAL PROTEIN 6.7 GM/DL (6.4-8.2)
--- NOTE | 2020-03-25 09:33 | REP ---
REASON: Preoperative evaluation. PRIOR EXAMINATION: 01/29/2019 There is no change from the prior exam. There are stable bibasilar fibrotic changes, which are mild. No acute patchy parenchymal opacities or pleural effusions have developed. The cardiomediastinal silhouette is unchanged. There is no change in the osseous structures. IMPRESSION: Stable exam. Electronically Signed by Brendan Bryan DO 03/26/2020 08:28 A
== END ==
LOC: M LAB 11:39
PROVIDERS: ATTEND Orthopaedic Surgery
DX: M17.12 Unilateral primary osteoarthritis, left knee (principal); Z79.82 Long term (current) use of aspirin

== ENCOUNTER → 2020-03-30 | Outpatient (CLI) | payer MEDICARE, BC, OTHER | LOC: M PT 12:54 | PROVIDERS: ATTEND Orthopaedic Surgery | DX: M17.12 Unilateral primary osteoarthritis, left knee (principal) ==

== ENCOUNTER → 2020-05-15 | Outpatient (RCR) | payer MEDICARE, BC, OTHER | END | disposition home or self-care (01) | LOC: M PT 04-24 10:45 | PROVIDERS: ATTEND Orthopaedic Surgery | DX: Z96.652 Presence of left artificial knee joint (principal) ==

== ENCOUNTER 2020-06-13 08:24 | Outpatient (RCR) | payer MEDICARE, BC, OTHER | END 2020-06-14 | LOC: M PT 08:24 | PROVIDERS: ATTEND Orthopaedic Surgery | DX: Z96.652 Presence of left artificial knee joint (principal) ==

== ENCOUNTER 2020-06-20 10:00 | Outpatient (RCR) | payer MEDICARE, BC, OTHER | END 2020-07-15 | LOC: M PT 10:00 | PROVIDERS: ATTEND Orthopaedic Surgery | DX: Z47.1 Aftercare following joint replacement surgery (principal); Z96.652 Presence of left artificial knee joint ==

== ENCOUNTER → 2020-10-14 | Outpatient (CLI) | payer MEDICARE, BC, OTHER | LOC: M LABSMTC 08:38 | PROVIDERS: ATTEND Anesthesiology | DX: Z01.812 Encounter for preprocedural laboratory examination (principal); Z20.822 Contact with and (suspected) exposure to COVID-19 ==

== ENCOUNTER 2020-10-19 09:30 | Day surgery (SDC) | payer MEDICARE, BC, OTHER ==
[~2020-10-19] VITALS: Ht 170.2 cm; Wt 86.2 kg
[~2020-10-19 09:30] MED LIST changes: +CEFUROXIME 1MG/0.1ML INTRACAMERAL INJ As Ordered ONE; +DUOVISC (0.50ML VISCOAT/0.55ML PROVISC) OPHTH KIT As Ordered ONE; +MIDAZOLAM INJ 2MG/2ML VIAL (J2250 PER 1MG) As Ordered ONE; +OFLOXACIN 0.3 % (OCUFLOX) OPTH SOL 5ML OD ONE; +PHENYLEPHRINE 2.5% OPHTH SOL 2ML OD ONE; +POVIDONE-IODINE 5% OPHTH PREP SOL 30ML As Ordered ONE; +PROPARACAINE 0.5% OPHTH SOL 15ML OD ONE; +TROPICAMIDE 1% OPHTH SOLN 2ML OD ONE; +fentaNYL 100 MCG/2 ML INJECTION (J3010) As Ordered ONE
[2020-10-19] MEDS ORDERED: BSS IRR 500ML/OMIDRIA 4ML IRR BAG (OR ONLY) As Ordered ONE (09:57)
[2020-10-19 12:05] VITALS: BP 130/90
--- NOTE | 2020-10-20 10:36 | RO ---
OPERATIVE NOTE DATE OF OPERATION: 10/19/2020 PREOPERATIVE DIAGNOSIS: 1. Visually significant nuclear sclerotic cataract, right eye. POSTOPERATIVE DIAGNOSIS: 1. Visually significant nuclear sclerotic cataract, right eye. PROCEDURE: 1. Cataract extraction with use of phacoemulsification, and placement of intraocular lens, [id number], 8.5 D, right eye. SURGEON: Robin Alicea DO ANESTHESIA: Local (Omidria with MAC) COMPLICATIONS: None POSTOPERATIVE CONDITION: Stable INDICATIONS FOR SURGERY: 1. Blurred vision affecting patient's activities of daily living. DESCRIPTION OF PROCEDURE: The patient was seen in the preoperative area and properly identified. The correct operative eye was identified and marked. The patient received topical anesthetic, antibiotics, and topical dilating drops. The patient was then transferred to the operating room. The correct side was re-identified and a time-out was performed. The eye was prepped and draped in a sterile fashion. The eyelids were isolated with Tegaderm tape and the lids were held open with an adjustable speculum. A 1.0mm paracentesis incision was made. Omidria was then injected into the anterior chamber. Viscoelastic was then injected into the anterior chamber through the paracentesis. Using a 2.4mm sharp-tipped keratome, the anterior chamber was entered via a temporal clear cornea incision. A continuous curvilinear capsulorrhexis was created with Utrata forceps. Hydrodissection was performed with BSS on a blunt cannula until the nucleus was able to rotate freely. The crystalline lens was phacoemulsified and aspirated. Irrigation/aspiration was used to remove the cortical material Cohesive viscoelastic was placed into the capsular bag to deepen it. The implant was placed into the capsular bag and allowed to unfold. Placement was confirmed by visualizing the anterior capsulorrhexis. Irrigation/aspiration was used to remove the viscoelastic. The clear corneal incision was hydrated with BSS on a blunt cannula. The lens was well positioned. Intracameral antibiotic was injected into the anterior chamber. The incisions were then tested for leaks and found to be negative. The eye was then palpated for appropriate pressure and adjusted accordingly with BSS. The eyelid speculum was then carefully removed. A shield was placed over the eye. The patient tolerated the procedure well and was discharge to the recovery unit in a stable condition.
== END 2020-10-19 12:40 | disposition home or self-care (01) ==
LOC: M SDC 09:30
PROVIDERS: ATTEND Ophthalmology
DX: H25.11 Age-related nuclear cataract, right eye (principal); E78.5 Hyperlipidemia, unspecified; M41.9 Scoliosis, unspecified; G40.909 Epilepsy, unspecified, not intractable, without status epilepticus; Z79.82 Long term (current) use of aspirin; Z79.899 Other long term (current) drug therapy
CPT/HCPCS: 66984; J1097; J2250; J3010; V2632

== ENCOUNTER 2022-05-22 13:06 | Emergency (ER) | payer MEDICARE, BC, OTHER ==
[~2022-05-22] VITALS: Ht 170.2 cm; Wt 81.8 kg
[~2022-05-22 13:06] MED LIST changes: -CEFUROXIME 1MG/0.1ML INTRACAMERAL INJ As Ordered ONE; -D31000TA2 PO; -DUOVISC (0.50ML VISCOAT/0.55ML PROVISC) OPHTH KIT As Ordered ONE; -MIDAZOLAM INJ 2MG/2ML VIAL (J2250 PER 1MG) As Ordered ONE; -OFLOXACIN 0.3 % (OCUFLOX) OPTH SOL 5ML OD ONE; -PHENYLEPHRINE 2.5% OPHTH SOL 2ML OD ONE; -POVIDONE-IODINE 5% OPHTH PREP SOL 30ML As Ordered ONE; -PROPARACAINE 0.5% OPHTH SOL 15ML OD ONE; -TROPICAMIDE 1% OPHTH SOLN 2ML OD ONE; +VITA100093 PO; -fentaNYL 100 MCG/2 ML INJECTION (J3010) As Ordered ONE
[2022-05-22] MEDS ORDERED: ACETAMINOPHEN 500 MG TAB PO ONE (17:05)
[2022-05-22] MEDS ORDERED: BOOSTRIX/ADACEL VACCINE (DIPHTH/PERTUSS/ACELL/TETANUS) 0.5ML SYR IM ONE (17:05)
[2022-05-22] MEDS ORDERED: LIDOCAINE W/EPINEPHRINE 1% 20ML VIAL SC ONE (17:10)
[2022-05-22] MEDS ORDERED: cefTRIAXone SOD 1 GM in D5W MINI-BAG PLUS 50 ML IV ONE (19:00)
[2022-05-22] MEDS ORDERED: ONDANSETRON 4MG 2ML VIAL IV ONE (19:20)
[2022-05-22] MEDS ORDERED: MORPHINE 4 MG/ML 1ML VIAL/SYRINGE IV ONE ×2 (19:20→21:20)
[2022-05-22 20:00] LABS: RSV AMPLIFICATION NEGATIVE (NEGATIVE)
[2022-05-22 21:25] VITALS: BP 162/85
== END 2022-05-22 21:27 | disposition short-term general hospital (02) ==
LOC: M ED 13:06
DX: S22.42XA Multiple fractures of ribs, left side, initial encounter for closed fracture (principal); S01.112A Laceration without foreign body of left eyelid and periocular area, initial encounter; S01.412A Laceration without foreign body of left cheek and temporomandibular area, initial encounter; S00.81XA Abrasion of other part of head, initial encounter; S00.83XA Contusion of other part of head, initial encounter; S20.212A Contusion of left front wall of thorax, initial encounter; S70.02XA Contusion of left hip, initial encounter; S02.842A Fracture of lateral orbital wall, left side, initial encounter for closed fracture; I25.10 Atherosclerotic heart disease of native coronary artery without angina pectoris; M50.30 Other cervical disc degeneration, unspecified cervical region; M75.42 Impingement syndrome of left shoulder; W01.198A Fall on same level from slipping, tripping and stumbling with subsequent striking against other object, initial encounter; Y92.510 Bank as the place of occurrence of the external cause; G40.909 Epilepsy, unspecified, not intractable, without status epilepticus; E78.5 Hyperlipidemia, unspecified; Z79.82 Long term (current) use of aspirin; Z79.899 Other long term (current) drug therapy
CPT/HCPCS: 12013; 70450; 70486; 71250; 72125; 73030; 73502; 87631; 90471; 90715; 96365; 96366; 96375; 96376; 99284; J0696; J2270; J2405

== ENCOUNTER → 2022-09-13 | Outpatient (CLI) | payer MEDICARE, BC, OTHER ==
[2022-09-13 13:21] LABS: ALKALINE PHOSPHATASE 68 U/L (46-116); ALT/SGPT 22 U/L (7.0-40); AST/SGOT 27 U/L (<34); BILIRUBIN,TOTAL 0.7 MG/DL (0.3-1.2); BLOOD UREA NITROGEN 20 MG/DL (9-23); CALCIUM LEVEL 9.6 MG/DL (8.3-10.6); CARBON DIOXIDE LEVEL 26 MMOL/L (20-31); CHLORIDE LEVEL 105 MMOL/L (98-107); CREATININE FOR GFR 1.07 MG/DL (0.70-1.30); GLOMERULAR FILTRATION RATE > 60.0 (>42); GLUCOSE, FASTING 100 MG/DL (74-106); POTASSIUM SERUM 4.4 MMOL/L (3.5-5.1); SODIUM LEVEL 138 MMOL/L (136-145); TOTAL PROTEIN 6.7 G/DL (5.7-8.2)
[2022-09-13 13:22] LABS: FOLATE 21.5 NG/ML (>5.4)
[2022-09-13 13:23] LABS: VITAMIN B12 LEVEL 484 PG/ML (211-911)
[2022-09-13 15:43] LABS: BASO # 0.1 10^3/uL (0.0-0.2); BASO % 1.1 % (0.0-1.0); EOS # 0.2 10^3/uL (0.0-0.5); EOS % 3.8 % (0.0-3.0); HEMATOCRIT 45.5 % (42.0-52.0); HEMOGLOBIN 14.9 g/dl (13.5-17.5); LYMPH # 1.2 10^3/uL (1.5-5.0); LYMPH % 21.1 % (24.0-44.0); MEAN CORPUSCULAR HEMOGLOBIN 31.7 pg (27.0-33.0); MEAN CORPUSCULAR HGB CONC 32.7 g/dl (32.0-36.5); MEAN CORPUSCULAR VOLUME 96.8 fl (80.0-96.0); MONO # 0.5 10^3/uL (0.0-0.8); MONO % 9.1 % (2.0-8.0); NEUTROPHILS # 3.6 10^3/uL (1.5-8.5); NEUTROPHILS % 64.5 % (36.0-66.0); PLATELET COUNT, AUTOMATED 249 10^3/uL (150-450); WHITE BLOOD COUNT 5.6 10^3/uL (4.0-10.0)
== END ==
LOC: M LAB 12:09
PROVIDERS: ATTEND Psychiatry & Neurology Neurology
DX: E03.9 Hypothyroidism, unspecified (principal); H02.409 Unspecified ptosis of unspecified eyelid; R41.3 Other amnesia; D51.9 Vitamin B12 deficiency anemia, unspecified; E51.9 Thiamine deficiency, unspecified; G40.89 Other seizures

== ENCOUNTER → 2023-01-03 | Outpatient (CLI) | payer MEDICARE, BC, OTHER ==
[2023-01-03 17:35] LABS: AMYLASE 58 U/L (30-118)
[2023-01-03 17:36] LABS: ALKALINE PHOSPHATASE 62 U/L (46-116); ALT/SGPT 29 U/L (7.0-40); AST/SGOT 17 U/L (<34); BILIRUBIN,TOTAL 0.8 MG/DL (0.3-1.2); BLOOD UREA NITROGEN 21 MG/DL (9-23); CALCIUM LEVEL 8.6 MG/DL (8.3-10.6); CARBON DIOXIDE LEVEL 26 MMOL/L (20-31); CHLORIDE LEVEL 109 MMOL/L (98-107); CREATININE FOR GFR 1.13 MG/DL (0.70-1.30); GLOMERULAR FILTRATION RATE > 60.0 (>42); GLUCOSE, FASTING 95 MG/DL (74-106); LIPASE 26 U/L (12-53); POTASSIUM SERUM 4.4 MMOL/L (3.5-5.1); SODIUM LEVEL 141 MMOL/L (136-145); TOTAL PROTEIN 6.2 G/DL (5.7-8.2)
[2023-01-03 17:40] LABS: HEMATOCRIT 43.7 % (42.0-52.0); HEMOGLOBIN 14.5 g/dl (13.5-17.5); MEAN CORPUSCULAR HEMOGLOBIN 31.9 pg (27.0-33.0); MEAN CORPUSCULAR HGB CONC 33.2 g/dl (32.0-36.5); MEAN CORPUSCULAR VOLUME 96.3 fl (80.0-96.0); PLATELET COUNT, AUTOMATED 246 10^3/uL (150-450); RED BLOOD COUNT 4.54 10^6/uL (4.30-6.10); WHITE BLOOD COUNT 6.8 10^3/uL (4.0-10.0)
== END ==
LOC: M WUC 12:21
PROVIDERS: ATTEND Internal Medicine
DX: R10.9 Unspecified abdominal pain (principal); M41.86 Other forms of scoliosis, lumbar region

== ENCOUNTER → 2023-02-05 | Day surgery (SDC) | payer MEDICARE, BC, OTHER ==
[~2023-02-05] VITALS: Ht 170.2 cm; Wt 82.7 kg
[~2023-02-05] MED LIST changes: +NS 1,000 ML IV ONE; +propofoL 200 MG/20 ML VIAL As Ordered ONE
[2023-02-05 12:40] VITALS: BP 125/80
== END | disposition home or self-care (01) ==
LOC: M OPP 10:48
PROVIDERS: ATTEND Internal Medicine Gastroenterology
DX: Z12.11 Encounter for screening for malignant neoplasm of colon (principal); K64.0 First degree hemorrhoids; K57.30 Diverticulosis of large intestine without perforation or abscess without bleeding; Z79.02 Long term (current) use of antithrombotics/antiplatelets; Z79.82 Long term (current) use of aspirin; Z79.899 Other long term (current) drug therapy

== ENCOUNTER → 2023-02-12 | Outpatient (CLI) | payer MEDICARE, BC, OTHER ==
[~2023-02-12] MED LIST changes: -NS 1,000 ML IV ONE; -propofoL 200 MG/20 ML VIAL As Ordered ONE
== END ==
LOC: M WUC 13:52
PROVIDERS: ATTEND Internal Medicine
DX: M54.9 Dorsalgia, unspecified (principal); M41.9 Scoliosis, unspecified; M47.817 Spondylosis without myelopathy or radiculopathy, lumbosacral region

== ENCOUNTER → 2024-06-07 | Outpatient (CLI) | payer MEDICARE, BC, OTHER ==
[2024-06-07 16:53] LABS: ALBUMIN 3.9 G/DL (3.2-5.2); ALKALINE PHOSPHATASE 63 U/L (46-116); ALT/SGPT 23 U/L (7.0-40); AST/SGOT 17 U/L (<34); BILIRUBIN,TOTAL 0.7 MG/DL (0.3-1.2); BLOOD UREA NITROGEN 24 MG/DL (9-23); CALCIUM LEVEL 9.5 MG/DL (8.3-10.6); CARBON DIOXIDE LEVEL 24 MMOL/L (20-31); CHLORIDE LEVEL 109 MMOL/L (98-107); CHOLESTEROL LEVEL 189 MG/DL (<200); CHOLESTEROL RISK RATIO 2.53 (<5); CREATININE FOR GFR 1.16 MG/DL (0.70-1.30); GLOMERULAR FILTRATION RATE > 60.0 (>42); GLUCOSE, FASTING 97 MG/DL (74-106); HDL CHOLESTEROL 74.5 MG/DL (>40); LDL CHOLESTEROL 96.3 MG/DL (<100); NON-HDL-C 114.5 MG/DL; POTASSIUM SERUM 4.5 MMOL/L (3.5-5.1); SODIUM LEVEL 140 MMOL/L (136-145); TOTAL PROTEIN 6.6 G/DL (5.7-8.2); TRIGLYCERIDES LEVEL 91 MG/DL (<150)
== END ==
LOC: M WUC 12:17
PROVIDERS: ATTEND Internal Medicine
DX: E78.5 Hyperlipidemia, unspecified (principal)

== ENCOUNTER → 2024-09-27 | Outpatient (CLI) | payer MEDICARE, BC, OTHER | LOC: M WUC 13:44 | PROVIDERS: ATTEND Physician Assistant | DX: S20.211A Contusion of right front wall of thorax, initial encounter (principal); W01.10XA Fall on same level from slipping, tripping and stumbling with subsequent striking against unspecified object, initial encounter; Y92.009 Unspecified place in unspecified non-institutional (private) residence as the place of occurrence of the external cause ==

== ENCOUNTER → 2024-12-13 | Outpatient (CLI) | payer MEDICARE, BC, OTHER ==
[2024-12-13 19:49] LABS: BASO # 0.1 10^3/uL (0.0-0.2); BASO % 1.2 % (0.0-1.0); EOS # 0.3 10^3/uL (0.0-0.5); EOS % 4.4 % (0.0-3.0); HEMATOCRIT 42.9 % (42.0-52.0); HEMOGLOBIN 14.3 g/dl (13.5-17.5); LYMPH # 1.3 10^3/uL (1.5-5.0); LYMPH % 23.3 % (24.0-44.0); MEAN CORPUSCULAR HGB CONC 33.3 g/dl (32.0-36.5); MONO # 0.6 10^3/uL (0.0-0.8); MONO % 9.8 % (2.0-8.0); NEUTROPHILS # 3.4 10^3/uL (1.5-8.5); NEUTROPHILS % 60.8 % (36.0-66.0); PLATELET COUNT, AUTOMATED 237 10^3/uL (150-450); RED BLOOD COUNT 4.47 10^6/uL (4.30-6.10); WHITE BLOOD COUNT 5.6 10^3/uL (4.0-10.0)
[2024-12-13 19:59] LABS: ALBUMIN 3.8 G/DL (3.2-5.2); ALKALINE PHOSPHATASE 59 U/L (40-129); ALT/SGPT 27 U/L (7.0-40); AST/SGOT 27 U/L (<34); BILIRUBIN,TOTAL 0.7 MG/DL (0.3-1.2); BLOOD UREA NITROGEN 22 MG/DL (9-23); CALCIUM LEVEL 9.4 MG/DL (8.3-10.6); CARBON DIOXIDE LEVEL 25 MMOL/L (20-31); CHLORIDE LEVEL 108 MMOL/L (98-107); CREATININE FOR GFR 1.19 MG/DL (0.70-1.30); GLOMERULAR FILTRATION RATE > 60.0 (>42); GLUCOSE, FASTING 88 MG/DL (74-106); POTASSIUM SERUM 4.3 MMOL/L (3.5-5.1); SODIUM LEVEL 142 MMOL/L (136-145); TOTAL PROTEIN 6.4 G/DL (5.7-8.2)
== END ==
LOC: M WUC 12:36
PROVIDERS: ATTEND Psychiatry & Neurology Neurology
DX: R56.9 Unspecified convulsions (principal); H02.409 Unspecified ptosis of unspecified eyelid; E78.5 Hyperlipidemia, unspecified

== ENCOUNTER → 2024-12-13 | Outpatient (CLI) | payer MEDICARE, BC, OTHER ==
[2024-12-13 19:58] LABS: ALBUMIN 3.8 G/DL (3.2-5.2); ALKALINE PHOSPHATASE 58 U/L (40-129); ALT/SGPT 27 U/L (7.0-40); AST/SGOT 27 U/L (<34); BILIRUBIN,TOTAL 0.6 MG/DL (0.3-1.2); BLOOD UREA NITROGEN 21 MG/DL (9-23); CALCIUM LEVEL 9.2 MG/DL (8.3-10.6); CARBON DIOXIDE LEVEL 25 MMOL/L (20-31); CHLORIDE LEVEL 108 MMOL/L (98-107); CHOLESTEROL LEVEL 176 MG/DL (<200); CHOLESTEROL RISK RATIO 2.18 (<5); GLOMERULAR FILTRATION RATE > 60.0 (>42); HDL CHOLESTEROL 80.7 MG/DL (>40); LDL CHOLESTEROL 84.3 MG/DL (<100); NON-HDL-C 95.3 MG/DL; POTASSIUM SERUM 4.4 MMOL/L (3.5-5.1); SODIUM LEVEL 143 MMOL/L (136-145); TOTAL PROTEIN 6.3 G/DL (5.7-8.2); TRIGLYCERIDES LEVEL 55 MG/DL (<150)
[2024-12-14 06:54] LABS: GLUCOSE, FASTING 87 MG/DL (74-106)
== END ==
LOC: M WUC 12:33
PROVIDERS: ATTEND Internal Medicine
DX: E78.5 Hyperlipidemia, unspecified (principal)

== ENCOUNTER → 2025-05-30 | Outpatient (CLI) | payer MEDICARE, BC ==
[2025-05-30 19:30] LABS: ALT/SGPT 22.0 U/L (7.0-40); AST/SGOT 20.0 U/L (<34); CALCIUM LEVEL 9.3 MG/DL (8.3-10.6); CARBON DIOXIDE LEVEL 25.0 MMOL/L (20-31); CHLORIDE LEVEL 106.0 MMOL/L (98-107); CHOLESTEROL LEVEL 184.0 MG/DL (<200); CHOLESTEROL RISK RATIO 2.38 (<5); CREATININE FOR GFR 1.16 MG/DL (0.70-1.30); GLOMERULAR FILTRATION RATE 65.7 (>42); LDL CHOLESTEROL 87.1 MG/DL (<100); NON-HDL-C 106.9 MG/DL; POTASSIUM SERUM 4.1 MMOL/L (3.5-5.1); SODIUM LEVEL 140.0 MMOL/L (136-145); TRIGLYCERIDES LEVEL 99.0 MG/DL (<150)
== END ==
LOC: M WUC 15:18
PROVIDERS: ATTEND Internal Medicine
DX: E78.5 Hyperlipidemia, unspecified (principal)